=== PATIENT | male | born 1990 | race Caucasian/White ===

== ENCOUNTER 2022-05-26 12:50 | Outpatient (CLI) | payer BC, SELFPAY ==
--- NOTE | 2022-05-26 13:00 | CRLHL7_ITS ---
For Patients: As a result of the Century Cures Act, medical imaging exams and procedure reports are released immediately into your electronic medical record. You may view this report before your referring provider. If you have questions, please contact your health care provider. Indication: Chronic sinusitis. Technique: Noncontrast axial CT of the paranasal sinuses with coronal reformats are provided. No comparisons. Findings: Rightward nasal septal deviation with small bony spur. Incidental right-sided kirsten bullosa. The visualized paranasal sinuses are clear. The ostiomeatal complexes are patent bilaterally. The visualized intraorbital contents appear within normal limits. Impression: 1. Rightward nasal septal deviation. 2. Otherwise, unremarkable CT of the paranasal sinuses. Please note that all CT scans at this facility use dose modulation, iterative reconstruction, and/or weight-based dosing when appropriate to reduce radiation dose to as low as reasonably achievable. Dictated by Maikel Troncoso MD @ 05/26/2022 3:29:37 PM (Electronically Signed)
== END 2022-05-26 12:51 | disposition home or self-care (01) ==
PROVIDERS: PCP Family Medicine; Visit Provider Family Medicine
DX: J32.9 Chronic sinusitis, unspecified (principal); J34.2 Deviated nasal septum
CPT/HCPCS: 70486

== ENCOUNTER 2024-02-19 09:39 | Outpatient (CLI) | payer BC, SELFPAY | END 2024-02-19 09:40 | disposition home or self-care (01) | LOC: NFLDREF 02-20 14:10 | PROVIDERS: PCP Family Medicine; Referring Provider Family Medicine; Visit Provider Family Medicine | DX: E78.00 Pure hypercholesterolemia, unspecified (principal); R79.89 Other specified abnormal findings of blood chemistry; R73.9 Hyperglycemia, unspecified | CPT/HCPCS: 80048; 80061; 80076 ==

== ENCOUNTER 2025-01-01 16:25 | Outpatient (CLI) | payer BC, SELFPAY | END 2025-01-01 16:26 | disposition home or self-care (01) | PROVIDERS: PCP Family Medicine; Visit Provider Family Medicine | DX: R07.9 Chest pain, unspecified (principal); R13.10 Dysphagia, unspecified | CPT/HCPCS: 80053; 84443 ==

== ENCOUNTER 2025-01-14 08:24 | Outpatient (CLI) | payer BC, SELFPAY ==
--- NOTE | 2025-01-14 09:00 | CRLHL7_ITS ---
For Patients: As a result of the Century Cures Act, medical imaging exams and procedure reports are released immediately into your electronic medical record. You may view this report before your referring provider. If you have questions, please contact your health care provider. INDICATION: Dysphagia. COMPARISON: None. TECHNIQUE: CT soft tissue neck with IV contrast. Isovue-370, 104 cc IV. FINDINGS: Normal bilateral parotid glands. Normal submandibular glands. Normal thyroid gland. Scattered normal size cervical lymph nodes bilaterally. No supraclavicular or superior mediastinal adenopathy. Nasopharynx and oropharynx are clear. No inflammation within the paravertebral fat pads are Rich ritual space. Normal thickness of the epiglottis. Normal glottis was symmetric vocal cords. Airway is patent. Lung apices are clear. Normal alignment of cervical spine. No prevertebral soft tissue swelling. Visualized paranasal sinuses mastoid air cells are clear. Normal orbits bilaterally. IMPRESSION: 1. No adenopathy. 2. Normal deep soft tissues of the neck. 3. No prevertebral soft tissue swelling Please note that all CT scans at this facility use dose modulation, iterative reconstruction, and/or weight-based dosing when appropriate to reduce radiation dose to as low as reasonably achievable. Dictated by Gio Dee MD @ 01/14/2025 2:35:13 PM (Electronically Signed)
--- NOTE | 2025-01-14 09:15 | FL_ITS ---
Patient: JOSEPH NUÑEZ Facility:?[facility] Patient ID:?[id number] Site Patient ID:?[id number]. Site :?[id number] Study:?XRay-Chest/Abd BARIUM SWALLOW MODIFIED Dr. Slaughter to -01/14/2025 10:13:43 AM Ordering Physician:?Paige Eng Final Report: INDICATION: Difficulty swallowing TECHNIQUE: Modified barium swallow. Fluoroscopic time 1 minute 27 seconds. FINDINGS/IMPRESSION: Anatomical structures are normal. Swallowing mechanism appears within normal limits. No episodes of penetration or aspiration. No significant findings. Dictated by Erasmo Slaughter MD @ 01/14/2025 10:19:40 AM Signed by:?Erasmo Slaughter MD @01/14/2025 10:19:40 AM (Electronic Signature)
--- NOTE | 2025-01-14 12:01 | SLP.MBS ---
SUPPLY ASSISTANT Modified Barium Swallow SUPPLY ASSISTANT Modified Barium Swallow Eval Start: 01/14/25 10:18 Text: Status: Active Freq: Protocol: Document 01/14/25 10:18 YANCY (Rec: 01/14/25 10:50 YANCY [id number]) E-signed By ARTURO Cabello Modified Barium Swallow Evaluation Evaluation Reason for Referral Pt was referred by Dr. Mario Mathis with complaints of swallowing difficulties. Medical Diagnosis R13.10 Dysphagia K21.9 GERD Treatment Diagnosis R13.10 Dysphagia Date of Order 12/31/24 Type of Referral Evaluation Onset of Patient's Pt reported he has been struggling with these issues Problem for around 10 years. Pertinent Medical Pt has hx of GERD, he was on omeprazole but recently History switched to Nexium a few weeks ago. Medications [id number] BID Hearing Status WNL Vision Status Wears glasses Subjective/Pain Pt complaints of globus sensation, muscle weakness and Comment swelling in his throat, frequent throat clearing, pain in throat and food coming back up. Assessment/ Juan Pablo is a 34-year-old male referred for a modified Impressions barium swallow study by Dr. Mathis, ENT. He has a history of GERD that does not appear to be well managed and has complaints of globus sensation on the right, frequent throat clearing and feeling that something is wrong with the right side of his neck. He reports that he has been dealing with these issues for about 10 years. A video swallow study was completed per provider orders. Under fluoroscopy, patient presents with normal oropharyngeal swallow. No penetration or aspiration noted, with good movement of bolus through the pharynx with no residue. There was noted reflux in the upper third of the esophagus and possible reduced esophageal motility. Please see radiologist report for more details. Recommend a Regular diet with thin liquids. Safe swallow and reflux strategies include upright for all po and remain upright one hour after meals, small bites at a slow rate, small single sips, can try head turn to the right, smaller more frequent meals, eat last meal three hours before bedtime, elevate head of bed 4-6 inches. No further speech therapy indicated. If behavior modifications/reflux strategies and new PPI medication does not relieve symptoms, could consider further GI work-up related to GERD. Goals/Functional Pt will verbalize understanding of today's assessment, Outcomes results, and recommendations. Goal met. Mod Barium Swallow-Lat View Textures Lateral View Food Thin: IDDSI Level 0,Mildly Thick: IDDSI Level 2 ( Presentation Previously [place] Thick),Pureed,Regular Oral Phase Labial Closure No Impairment (WFL) Bolus Formation No Impairment (WFL) Pooling L/R Bolus Formation No Impairment (WFL) under Tongue Bolus Formation No Impairment (WFL) Scattered Loss Mastication Rotary No Impairment (WFL) Chew Mastication Munching No Impairment (WFL) Mastication No Impairment (WFL) Lateralization A/P Lingual No Impairment (WFL) Propulsion Spills A/P Lingual No Impairment (WFL) Propulsion Delay Lingual Movement No Impairment (WFL) Residue Clearing No Impairment (WFL) Pharyngeal Phase Swallow Response No Impairment (WFL) Delay Base of Tongue No Impairment (WFL) Epiglottic Coverage No Impairment (WFL) Laryngeal Elevation No Impairment (WFL) Vallecular Retention No Impairment (WFL) Clearing Pharyn. Wall Residue No Impairment (WFL) Clearing Piriform Sinus No Impairment (WFL) Retention Mod Barium Swallow-A/P View Performed Mod Barium Swallow A Peformed /P View Test Textures A/P View Food Thin: IDDSI Level 0,Pureed Presentation Observations A/P View Other Reflux noted Observations Mod Barium Swallow Impressions Summary and Impressions Oral Phase No Impairment (WFL) Impression Oral Phase Summary Remains intact. Pharyngeal Phase No Impairment (WFL) Impression Pharyngeal Phase Remains intact. Summary Esophogeal Phase Reflux noted below the level of the UES but did not re- Summary enter the esophagus. Motility appeared delayed. Barium Swallow Recommendations Diet Dietary Regular textures with thin liquids. Recommendations Comments Treatment/Strategies Strategy/Precaution Pt was given education and handout on reflux management Recommend Comments and techniques. Referrals/Other Recommended GI Consult Referrals Other If behavior modifications and medication changes don't Recommendations improve reflux symptoms could consider GI consult for further testing (possible manometry). Modified Barium Swallow Education Education Topics Teaching Recipient Patient Teaching Methods Verbal,Written Response to Teaching Verbalize Understanding Therapist Signature/ Librado Singletary MS [facility]-SUPPLY ASSISTANT #[id number] License Number Speech/Language Pathology Billing Units Billing Units Eval Swallow Motion 1 Fluoro
--- NOTE | 2025-01-14 12:02 | SLP.MBS ---
SALES APPLICATIONS ENGINEER Modified Barium Swallow SALES APPLICATIONS ENGINEER Modified Barium Swallow Eval Start: 01/14/25 10:18 Text: Status: Active Freq: Protocol: Document 01/14/25 10:18 YANCY (Rec: 01/14/25 10:50 YANCY [id number]) E-signed By ARTURO Cabello Modified Barium Swallow Evaluation Evaluation Reason for Referral Pt was referred by Dr. Mario Mathis with complaints of swallowing difficulties. Medical Diagnosis R13.10 Dysphagia K21.9 GERD Treatment Diagnosis R13.10 Dysphagia Date of Order 12/31/24 Type of Referral Evaluation Onset of Patient's Pt reported he has been struggling with these issues Problem for around 10 years. Pertinent Medical Pt has hx of GERD, he was on omeprazole but recently History switched to Nexium a few weeks ago. Medications [id number] BID Hearing Status WNL Vision Status Wears glasses Subjective/Pain Pt complaints of globus sensation, muscle weakness and Comment swelling in his throat, frequent throat clearing, pain in throat and food coming back up. Assessment/ Juan Pablo is a 34-year-old male referred for a modified Impressions barium swallow study by Dr. Mathis, ENT. He has a history of GERD that does not appear to be well managed and has complaints of globus sensation on the right, frequent throat clearing and feeling that something is wrong with the right side of his neck. He reports that he has been dealing with these issues for about 10 years. A video swallow study was completed per provider orders. Under fluoroscopy, patient presents with normal oropharyngeal swallow. No penetration or aspiration noted, with good movement of bolus through the pharynx with no residue. There was noted reflux in the upper third of the esophagus and possible reduced esophageal motility. Please see radiologist report for more details. Recommend a Regular diet with thin liquids. Safe swallow and reflux strategies include upright for all po and remain upright one hour after meals, small bites at a slow rate, small single sips, can try head turn to the right, smaller more frequent meals, eat last meal three hours before bedtime, elevate head of bed 4-6 inches. No further speech therapy indicated. If behavior modifications/reflux strategies and new PPI medication does not relieve symptoms, could consider further GI work-up related to GERD. Goals/Functional Pt will verbalize understanding of today's assessment, Outcomes results, and recommendations. Goal met. Mod Barium Swallow-Lat View Textures Lateral View Food Thin: IDDSI Level 0,Mildly Thick: IDDSI Level 2 ( Presentation Previously [place] Thick),Pureed,Regular Oral Phase Labial Closure No Impairment (WFL) Bolus Formation No Impairment (WFL) Pooling L/R Bolus Formation No Impairment (WFL) under Tongue Bolus Formation No Impairment (WFL) Scattered Loss Mastication Rotary No Impairment (WFL) Chew Mastication Munching No Impairment (WFL) Mastication No Impairment (WFL) Lateralization A/P Lingual No Impairment (WFL) Propulsion Spills A/P Lingual No Impairment (WFL) Propulsion Delay Lingual Movement No Impairment (WFL) Residue Clearing No Impairment (WFL) Pharyngeal Phase Swallow Response No Impairment (WFL) Delay Base of Tongue No Impairment (WFL) Epiglottic Coverage No Impairment (WFL) Laryngeal Elevation No Impairment (WFL) Vallecular Retention No Impairment (WFL) Clearing Pharyn. Wall Residue No Impairment (WFL) Clearing Piriform Sinus No Impairment (WFL) Retention Mod Barium Swallow-A/P View Performed Mod Barium Swallow A Peformed /P View Test Textures A/P View Food Thin: IDDSI Level 0,Pureed Presentation Observations A/P View Other Reflux noted Observations Mod Barium Swallow Impressions Summary and Impressions Oral Phase No Impairment (WFL) Impression Oral Phase Summary Remains intact. Pharyngeal Phase No Impairment (WFL) Impression Pharyngeal Phase Remains intact. Summary Esophogeal Phase Reflux noted below the level of the UES but did not re- Summary enter the esophagus. Motility appeared delayed. Barium Swallow Recommendations Diet Dietary Regular textures with thin liquids. Recommendations Comments Treatment/Strategies Strategy/Precaution Pt was given education and handout on reflux management Recommend Comments and techniques. Referrals/Other Recommended GI Consult Referrals Other If behavior modifications and medication changes don't Recommendations improve reflux symptoms could consider GI consult for further testing (possible manometry). Modified Barium Swallow Education Education Topics Teaching Recipient Patient Teaching Methods Verbal,Written Response to Teaching Verbalize Understanding Therapist Signature/ Librado Singletary MS [facility]-SALES APPLICATIONS ENGINEER #[id number] License Number Speech/Language Pathology Billing Units Billing Units Eval Swallow Motion 1 Fluoro
== END 2025-01-14 08:25 | disposition home or self-care (01) ==
LOC: CT 08:24
PROVIDERS: PCP Family Medicine; Visit Provider Otolaryngology
DX: R13.10 Dysphagia, unspecified (principal)
CPT/HCPCS: 70491; 74230; 92611; Q9967